=== PATIENT | female | born 1935 | race Caucasian/White ===

== ENCOUNTER 2017-05-13 21:22 | Inpatient (IN) | payer MEDICARE ==
[~2017-05-13] VITALS: Ht 167.6 cm; Wt 53.5 kg
[~2017-05-13 21:22] MED LIST: LOSA100T28 PO; LOSA25TA96 PO; hyDRALAzine tablet PO
[2017-05-13 21:46] LABS: BASOPHILS % (AUTO) 0.3 % (0-1); EOSINOPHILS # (AUTO) 0.2 X10'3 (0-0.9); EOSINOPHILS % (AUTO) 2.4 % (0-6); HEMATOCRIT 42.8 % (35.0-45.0); HEMOGLOBIN 14.8 g/dl (12.0-16.0); LYMPHOCYTES % (AUTO) 14.9 % (21-51); MEAN CORPUSCULAR HEMOGLOBIN 30.9 PG (27.0-31.0); MEAN CORPUSCULAR HGB CONC 34.5 % (33.0-36.5); MEAN CORPUSCULAR VOLUME 89.6 FL (78-98); MEAN PLATELET VOLUME 7.3 FL (7.4-10.4); MONOCYTES # (AUTO) 0.4 X10'3 (0-0.9); MONOCYTES % (AUTO) 5.9 % (2-12); NEUTROPHILS # (AUTO) 4.9 X10'3 (1.8-7.7); NEUTROPHILS % (AUTO) 76.5 % (42-75); PLATELET COUNT 282 X10'3 (140-440); RED BLOOD COUNT 4.78 X10'6 (4.20-5.60); RED CELL DISTRIBUTION WIDTH 13.3 % (11.5-14.5); WHITE BLOOD COUNT 6.4 X10'3 (4.5-11.0)
[2017-05-13 21:58] LABS: PARTIAL THROMBOPLASTIN TIME 28 SECONDS (22-32); PROTHROMBIN TIME 10.6 SECONDS (9.0-12.0)
[2017-05-13 22:05] LABS: ALANINE AMINOTRANSFERASE 30 U/L (12-78); ALBUMIN 3.7 G/DL (3.4-5.0); ALBUMIN/GLOBULIN RATIO 0.9 (1.1-1.5); ALKALINE PHOSPHATASE 55 IU/L (46-116); ASPARTATE AMINO TRANSFERASE 22 U/L (10-37); BILIRUBIN,TOTAL 0.5 MG/DL (0.1-1.0); BLOOD UREA NITROGEN 10 MG/DL (7-18); BUN/CREATININE RATIO 14.3 (6.6-38.0); CALCIUM 8.6 MG/DL (8.5-10.1); CHLORIDE 92 MMOL/L (99-107); GLUCOSE 134 MG/DL (70-104); POTASSIUM 4.3 MMOL/L (3.5-5.1); TOTAL PROTEIN 7.7 G/DL (6.4-8.2); eGFR 80 ML/MIN
[2017-05-13 22:07] LABS: ANION GAP 7 (8-16); SODIUM 124 MMOL/L (135-145)
[2017-05-13] MEDS ORDERED: normal saline 1000ml 1,000 ML IV ONE (22:25)
[2017-05-13] MEDS ORDERED: ondansetron/PF 4mg/2ml inj IV ONE ×2 (22:25→23:05)
[2017-05-13] MEDS ORDERED: ketorolac trometh. 30mg/ml inj. IV ONE (23:05)
[2017-05-14] MEDS ORDERED: metoclopramide 5 mg/ml inj IV ONE (00:20)
[2017-05-14] MEDS ORDERED: HYDROmorphone 1 mg/ml syringe IV ONE (00:20)
[2017-05-14] MEDS ORDERED: morphine 4 MG/ML inj SYRINge IV ONE ×2 (00:35→10:35)
[2017-05-14] MEDS ORDERED: iohexol 300mg/ml 100ml inj. ONE (01:51)
[2017-05-14] MEDS ORDERED: iohexol 300 MG/1 ML 50ml polymer ONE (01:59)
[2017-05-14] MEDS ORDERED: BENZ-38 PO (02:22)
[2017-05-14] MEDS ORDERED: morphine 4 MG/ML inj SYRINge IV PRN (03:15)
[2017-05-14] MEDS ORDERED: ondansetron/PF 4mg/2ml inj IV PRN ×2 (03:15→20:45)
[2017-05-14 03:24] LABS: CLARITY,URINE SLIGHTLY CLOUDY (Clear); COLOR,URINE YELLOW (Yellow); GLUCOSE, URINE NEGATIVE (Neg); KETONES,URINE 15 mg/dl (Neg); LEUKOCYTE ESTERASE ,URINE SMALL (Neg); NITRITES, URINE NEGATIVE (Neg); OCCULT BLOOD,URINE NEGATIVE (Neg); PH,URINE 6.5 (4.8-8.0); PROTEIN,URINE TRACE mg/dl (Neg); UROBILINOGEN,URINE 0.2 E.U/dL (0.2-1.0)
[2017-05-14 03:25] LABS: UA COLLECTION TYPE CLN CATCH MIDSTREAM
[2017-05-14 03:32] LABS: BACTERIA,URINE FEW /HPF (Neg); HYALINE CASTS 0-3 /LPF (NEGATIVE); MUCUS STRANDS FEW /LPF (Neg); RBC,URINE NONE SEEN /HPF (0-2); SQUAMOUS EPITHELIAL CELL,UR FEW /LPF (FEW); WBC CLUMPS,URINE FEW /HPF (NEGATIVE); WBC,URINE 20-30 /HPF (0-4)
[2017-05-14] MEDS: normal saline 1000ml 1,000 ML IV SCH ×2 (03:50→13:13)
[2017-05-14] MEDS: CefTRIAXone/D5W-Rocephin 1gm 50 ML IV SCH ×2 (03:54→20:24)
[2017-05-14] MEDS: lactobacillus rhamnosus 10,000 MMU CELLS/CAPSULE PO SCH ×2 (08:33→20:24)
[2017-05-14 08:36] LABS: BASOPHILS % (AUTO) 0.2 % (0-1); EOSINOPHILS # (AUTO) 0.1 X10'3 (0-0.9); EOSINOPHILS % (AUTO) 0.8 % (0-6); HEMATOCRIT 38.4 % (35.0-45.0); HEMOGLOBIN 13.3 g/dl (12.0-16.0); LYMPHOCYTES # (AUTO) 0.8 X10'3 (1.1-4.8); LYMPHOCYTES % (AUTO) 10.2 % (21-51); MEAN CORPUSCULAR HEMOGLOBIN 31.2 PG (27.0-31.0); MEAN CORPUSCULAR HGB CONC 34.5 % (33.0-36.5); MEAN CORPUSCULAR VOLUME 90.3 FL (78-98); MEAN PLATELET VOLUME 7.4 FL (7.4-10.4); MONOCYTES # (AUTO) 0.5 X10'3 (0-0.9); MONOCYTES % (AUTO) 6.3 % (2-12); NEUTROPHILS # (AUTO) 6.7 X10'3 (1.8-7.7); NEUTROPHILS % (AUTO) 82.5 % (42-75); PLATELET COUNT 248 X10'3 (140-440); RED BLOOD COUNT 4.25 X10'6 (4.20-5.60); RED CELL DISTRIBUTION WIDTH 13.4 % (11.5-14.5); WHITE BLOOD COUNT 8.2 X10'3 (4.5-11.0)
[2017-05-14 08:49] LABS: ALBUMIN 3.2 G/DL (3.4-5.0); ANION GAP 8 (8-16); BLOOD UREA NITROGEN 7 MG/DL (7-18); BUN/CREATININE RATIO 11.9 (6.6-38.0); CALCIUM 7.8 MG/DL (8.5-10.1); CHLORIDE 94 MMOL/L (99-107); CREATININE 0.59 MG/DL (0.40-0.90); GLUCOSE 134 MG/DL (70-104); POTASSIUM 3.9 MMOL/L (3.5-5.1); SODIUM 126 MMOL/L (135-145); TOTAL CARBON DIOXIDE 24.2 MMOL/L (24-32); eGFR > 90 ML/MIN
[2017-05-14] MEDS ORDERED: ondansetron/PF 4mg/2ml inj IV ONE ×2 (10:05→12:25)
[2017-05-14] MEDS ORDERED: MORPHINE 2MG in 2ml NS syringe IV ONE (10:05)
[2017-05-14] MEDS ORDERED: methylPREDNISolone sod succ 125mg/2ml vial IV ONE ×2 (10:05→13:00)
[2017-05-14] MEDS ORDERED: azithromycin/NS 500mg/250ml 250 ML IV ONE (10:05)
[2017-05-14] MEDS ORDERED: benzonatate 100mg capsule PO PRN (10:55)
[2017-05-14] MEDS: ipratropium/albuterol 3ml nebule NEB SCH ×4 (11:00→22:49)
[2017-05-14] MEDS ORDERED: losartan 50mg tablet PO ONE (11:00)
[2017-05-14] MEDS ORDERED: LORazepam 2 mg/ml vial IV ONE ×2 (12:25→12:35)
[2017-05-14] MEDS ORDERED: TOBR5DRO7 (13:00)
[2017-05-14] MEDS: oseltamivir phos 75mg capsule PO SCH (15:38)
[2017-05-14 16:32] VITALS: BP 157/79
[2017-05-14] MEDS: hyDRALAzine 10mg tablet PO SCH (17:00)
[2017-05-14 18:40] VITALS: BP 154/73
[2017-05-14 19:00] VITALS: BP 154/73
[2017-05-15] VITALS: BP 145/84
[2017-05-15] MEDS: hyDRALAzine 10mg tablet PO SCH ×3 (00:16→15:07)
[2017-05-15] MEDS: MORPHINE 2MG in 2ml NS syringe IV PRN ×3 (00:16→11:15)
[2017-05-15] MEDS: normal saline 1000ml 1,000 ML IV SCH ×3 (00:23→19:30)
[2017-05-15] MEDS: ipratropium/albuterol 3ml nebule NEB SCH ×2 (02:57→19:00)
[2017-05-15] MEDS: metoclopramide 5 mg/ml inj IV PRN ×3 (03:02→16:11)
[2017-05-15] MEDS ORDERED: ketorolac trometh. 30mg/ml inj. IV ONE (03:25)
[2017-05-15 04:00] VITALS: BP 139/69
[2017-05-15 04:33] LABS: INR 1.1 INR; PROTHROMBIN TIME 11.3 SECONDS (9.0-12.0)
[2017-05-15 04:37] LABS: BASOPHILS % (AUTO) 0 % (0-1); EOSINOPHILS # (AUTO) 0.2 X10'3 (0-0.9); EOSINOPHILS % (AUTO) 1.5 % (0-6); HEMATOCRIT 38.4 % (35.0-45.0); HEMOGLOBIN 13.4 g/dl (12.0-16.0); LYMPHOCYTES # (AUTO) 1.1 X10'3 (1.1-4.8); LYMPHOCYTES % (AUTO) 9.3 % (21-51); MEAN CORPUSCULAR HEMOGLOBIN 31.1 PG (27.0-31.0); MEAN CORPUSCULAR HGB CONC 34.8 % (33.0-36.5); MEAN CORPUSCULAR VOLUME 89.3 FL (78-98); MEAN PLATELET VOLUME 7.7 FL (7.4-10.4); MONOCYTES % (AUTO) 8.9 % (2-12); NEUTROPHILS # (AUTO) 9.1 X10'3 (1.8-7.7); NEUTROPHILS % (AUTO) 80.3 % (42-75); PLATELET COUNT 284 X10'3 (140-440); RED BLOOD COUNT 4.29 X10'6 (4.20-5.60); RED CELL DISTRIBUTION WIDTH 13.4 % (11.5-14.5); WHITE BLOOD COUNT 11.3 X10'3 (4.5-11.0)
[2017-05-15 05:17] LABS: ALBUMIN 3.2 G/DL (3.4-5.0); ANION GAP 11 (8-16); BLOOD UREA NITROGEN 8 MG/DL (7-18); CHLORIDE 100 MMOL/L (99-107); GLUCOSE 133 MG/DL (70-104); LIPASE 245 U/L (73-393); MAGNESIUM 1.6 MG/DL (1.5-2.4); POTASSIUM 3.7 MMOL/L (3.5-5.1); SODIUM 135 MMOL/L (135-145); TOTAL CARBON DIOXIDE 23.9 MMOL/L (24-32); eGFR 69 ML/MIN
[2017-05-15 08:00] VITALS: BP 142/74
[2017-05-15] MEDS: lactobacillus rhamnosus 10,000 MMU CELLS/CAPSULE PO SCH ×2 (08:00→20:39)
[2017-05-15] MEDS: losartan 50mg tablet PO SCH (08:00)
[2017-05-15] MEDS: oseltamivir phos 75mg capsule PO SCH (08:00)
[2017-05-15 11:00] VITALS: BP 148/80
[2017-05-15] MEDS: ondansetron/PF 4mg/2ml inj IV PRN ×2 (15:07→19:27)
[2017-05-15] MEDS: morphine 4 MG/ML inj SYRINge IV PRN ×2 (16:09→20:39)
[2017-05-15 18:50] VITALS: BP 152/86
[2017-05-15] MEDS: CefTRIAXone/D5W-Rocephin 1gm 50 ML IV SCH (20:38)
[2017-05-15] MEDS ORDERED: ipratropium/albuterol 3ml nebule NEB PRN (22:45)
[2017-05-16] VITALS: BP 148/84
[2017-05-16] MEDS: hyDRALAzine 10mg tablet PO SCH ×5 (00:03→23:46)
[2017-05-16] MEDS: metoclopramide 5 mg/ml inj IV PRN (00:03)
[2017-05-16] MEDS: morphine 4 MG/ML inj SYRINge IV PRN ×5 (00:03→23:05)
[2017-05-16] MEDS: ondansetron/PF 4mg/2ml inj IV PRN ×3 (02:18→10:49)
[2017-05-16 02:27] LABS: CLARITY,URINE Clear (Clear); COLOR,URINE Yellow (Yellow); GLUCOSE, URINE Negative (Neg); KETONES,URINE Negative (Neg); LEUKOCYTE ESTERASE ,URINE Small (Neg); NITRITES, URINE Negative (Neg); OCCULT BLOOD,URINE Negative (Neg); PH,URINE 6.5 (4.8-8.0); PROTEIN,URINE Negative (Neg); UROBILINOGEN,URINE 0.2 E.U/dL (0.2-1.0)
[2017-05-16 02:39] LABS: UA COLLECTION TYPE VOIDED
[2017-05-16] MEDS: HYDROcodone/acetaminophen 5mg/325mg tablet PO PRN (02:39)
[2017-05-16 02:40] LABS: BACTERIA,URINE NONE SEEN /HPF (Neg); RBC,URINE NONE SEEN /HPF (0-2); SQUAMOUS EPITHELIAL CELL,UR FEW /LPF (FEW); WBC,URINE 0-4 /HPF (0-4)
[2017-05-16] MEDS: normal saline 1000ml 1,000 ML IV SCH ×2 (04:44→12:45)
[2017-05-16 06:05] LABS: BASOPHILS % (AUTO) 0.1 % (0-1); EOSINOPHILS # (AUTO) 0.2 X10'3 (0-0.9); EOSINOPHILS % (AUTO) 1.8 % (0-6); HEMATOCRIT 38.4 % (35.0-45.0); HEMOGLOBIN 13.2 g/dl (12.0-16.0); LYMPHOCYTES # (AUTO) 1.1 X10'3 (1.1-4.8); LYMPHOCYTES % (AUTO) 8.1 % (21-51); MEAN CORPUSCULAR HEMOGLOBIN 31.1 PG (27.0-31.0); MEAN CORPUSCULAR HGB CONC 34.5 % (33.0-36.5); MEAN CORPUSCULAR VOLUME 90.3 FL (78-98); MEAN PLATELET VOLUME 7.4 FL (7.4-10.4); MONOCYTES # (AUTO) 1.2 X10'3 (0-0.9); MONOCYTES % (AUTO) 8.6 % (2-12); NEUTROPHILS # (AUTO) 11.3 X10'3 (1.8-7.7); NEUTROPHILS % (AUTO) 81.4 % (42-75); PLATELET COUNT 281 X10'3 (140-440); RED BLOOD COUNT 4.25 X10'6 (4.20-5.60); RED CELL DISTRIBUTION WIDTH 13.6 % (11.5-14.5); WHITE BLOOD COUNT 13.9 X10'3 (4.5-11.0)
[2017-05-16 06:16] LABS: ALBUMIN 2.9 G/DL (3.4-5.0); ANION GAP 6 (8-16); BLOOD UREA NITROGEN 6 MG/DL (7-18); BUN/CREATININE RATIO 9.2 (6.6-38.0); CALCIUM 7.8 MG/DL (8.5-10.1); CHLORIDE 98 MMOL/L (99-107); CREATININE 0.65 MG/DL (0.40-0.90); GLUCOSE 117 MG/DL (70-104); POTASSIUM 3.2 MMOL/L (3.5-5.1); SODIUM 131 MMOL/L (135-145); TOTAL CARBON DIOXIDE 27.3 MMOL/L (24-32); eGFR 87 ML/MIN
[2017-05-16] MEDS: azithromycin/NS 500mg/250ml 250 ML IV SCH (07:09)
[2017-05-16] MEDS: lactobacillus rhamnosus 10,000 MMU CELLS/CAPSULE PO SCH ×2 (07:09→21:11)
[2017-05-16] MEDS: losartan 50mg tablet PO SCH (07:09)
[2017-05-16] MEDS: oseltamivir phos 75mg capsule PO SCH (07:09)
[2017-05-16 08:10] VITALS: BP 161/86
[2017-05-16] MEDS ORDERED: magnesium Cl slow-release 64mg tablet PO PRN (10:45)
[2017-05-16] MEDS ORDERED: magnesium 2GM in 50ml NS 50 ML IV PRN (10:45)
[2017-05-16] MEDS ORDERED: potassium Cl 20 mEq SR tablet PO PRN ×2 (10:45)
[2017-05-16] MEDS ORDERED: magnesium 4gm in 100ml NS 100 ML IV PRN (10:45)
[2017-05-16] MEDS ORDERED: potassium Cl 40MEQ/NS 500ml 500 ML IV PRN ×2 (10:45)
[2017-05-16 11:05] VITALS: BP 162/86
[2017-05-16] MEDS ORDERED: MORPHINE 2MG in 2ml NS syringe IV ONE (13:00)
[2017-05-16] MEDS ORDERED: proMETHazine 12.5mg rectal suppository RC PRN (13:05)
[2017-05-16] MEDS ORDERED: acetaminophen 325mg tablet PO PRN (17:20)
[2017-05-16 18:40] VITALS: BP 152/89
[2017-05-16] MEDS: CefTRIAXone/D5W-Rocephin 1gm 50 ML IV SCH (21:11)
[2017-05-16] MEDS: LORazepam 1 MG tablet PO PRN (23:49)
[2017-05-17 05:38] LABS: BASOPHILS # (AUTO) 0.1 X10'3 (0-0.2); BASOPHILS % (AUTO) 0.8 % (0-1); EOSINOPHILS # (AUTO) 0.1 X10'3 (0-0.9); EOSINOPHILS % (AUTO) 1.4 % (0-6); HEMATOCRIT 36.4 % (35.0-45.0); HEMOGLOBIN 12.5 g/dl (12.0-16.0); LYMPHOCYTES # (AUTO) 1.2 X10'3 (1.1-4.8); LYMPHOCYTES % (AUTO) 17.5 % (21-51); MEAN CORPUSCULAR HEMOGLOBIN 31.1 PG (27.0-31.0); MEAN CORPUSCULAR HGB CONC 34.3 % (33.0-36.5); MEAN CORPUSCULAR VOLUME 90.5 FL (78-98); MONOCYTES # (AUTO) 0.9 X10'3 (0-0.9); MONOCYTES % (AUTO) 13.1 % (2-12); NEUTROPHILS # (AUTO) 4.4 X10'3 (1.8-7.7); NEUTROPHILS % (AUTO) 67.2 % (42-75); PLATELET COUNT 248 X10'3 (140-440); RED BLOOD COUNT 4.02 X10'6 (4.20-5.60); RED CELL DISTRIBUTION WIDTH 13.6 % (11.5-14.5); WHITE BLOOD COUNT 6.6 X10'3 (4.5-11.0)
[2017-05-17 05:56] LABS: ALBUMIN 2.5 G/DL (3.4-5.0); ANION GAP 5 (8-16); BLOOD UREA NITROGEN 5 MG/DL (7-18); BUN/CREATININE RATIO 9.8 (6.6-38.0); CALCIUM 7.8 MG/DL (8.5-10.1); CHLORIDE 102 MMOL/L (99-107); CREATININE 0.51 MG/DL (0.40-0.90); GLUCOSE 93 MG/DL (70-104); MAGNESIUM 1.9 MG/DL (1.5-2.4); SODIUM 136 MMOL/L (135-145); TOTAL CARBON DIOXIDE 28.6 MMOL/L (24-32); eGFR > 90 ML/MIN
[2017-05-17 06:29] LABS: POTASSIUM 2.9 MMOL/L (3.5-5.1)
[2017-05-17] MEDS: lactobacillus rhamnosus 10,000 MMU CELLS/CAPSULE PO SCH ×2 (07:01→20:14)
[2017-05-17] MEDS: oseltamivir phos 75mg capsule PO SCH (07:01)
[2017-05-17] MEDS: losartan 50mg tablet PO SCH (07:01)
[2017-05-17] MEDS: hyDRALAzine 10mg tablet PO SCH ×2 (07:01→17:23)
[2017-05-17] MEDS: normal saline 1000ml 1,000 ML IV SCH (07:07)
[2017-05-17] MEDS: azithromycin/NS 500mg/250ml 250 ML IV SCH (07:07)
[2017-05-17 07:12] VITALS: BP 161/94
[2017-05-17] MEDS: LIDOcaine 1% 30ml vial 5 ML in potassium Cl 40MEQ/NS 500ml 500 ML IV PRN ×2 (09:12→14:21)
[2017-05-17] MEDS: morphine 4 MG/ML inj SYRINge IV PRN ×2 (11:00→17:25)
[2017-05-17] MEDS ORDERED: bisacodyl 10mg suppository rectal RC PRN (11:05)
[2017-05-17] MEDS ORDERED: magnesium hydroxide 30ml (MOM) UD suspension PO ONE (11:05)
[2017-05-17] MEDS: ondansetron/PF 4mg/2ml inj IV PRN ×2 (11:25→17:29)
[2017-05-17 11:35] VITALS: BP 143/73
[2017-05-17 13:28] LABS: GLUCOSE,CSF 69 MG/DL (40-75); TOTAL PROTEIN,CSF 41 MG/DL (30-60)
[2017-05-17 14:19] LABS: APPEARANCE,CSF CLEAR; CSF SUPERNATANT COLOR COLORLESS; CSF VOLUME 6 ML; TUBE# COUNTED 3
[2017-05-17 14:20] LABS: CSF RBC 0 /CU MM (0); CSF WBC CT 0 /CU MM (0-5)
[2017-05-17] MEDS ORDERED: potassium Cl 40MEQ/NS 500ml 500 ML IV PRN ×2 (16:15)
[2017-05-17] MEDS ORDERED: potassium Cl 20 mEq SR tablet PO PRN ×2 (16:15)
[2017-05-17] MEDS ORDERED: magnesium Cl slow-release 64mg tablet PO PRN (16:15)
[2017-05-17] MEDS ORDERED: magnesium 2GM in 50ml NS 50 ML IV PRN (16:15)
[2017-05-17] MEDS ORDERED: magnesium 4gm in 100ml NS 100 ML IV PRN (16:15)
[2017-05-17 20:00] VITALS: BP 163/98
[2017-05-17] MEDS: LORazepam 1 MG tablet PO PRN (20:14)
[2017-05-17] MEDS: CefTRIAXone/D5W-Rocephin 1gm 50 ML IV SCH (20:15)
[2017-05-17] MEDS ORDERED: diphenhydrAMINE 25mg capsule PO PRN (21:10)
[2017-05-17 23:30] VITALS: BP 128/74
[2017-05-18] MEDS: morphine 4 MG/ML inj SYRINge IV PRN ×3 (05:53→19:03)
[2017-05-18] MEDS: ondansetron/PF 4mg/2ml inj IV PRN ×3 (05:53→16:36)
[2017-05-18 06:28] LABS: BASOPHILS # (AUTO) 0.1 X10'3 (0-0.2); BASOPHILS % (AUTO) 1.2 % (0-1); EOSINOPHILS # (AUTO) 0.2 X10'3 (0-0.9); EOSINOPHILS % (AUTO) 3.7 % (0-6); HEMATOCRIT 40.1 % (35.0-45.0); LYMPHOCYTES % (AUTO) 14.6 % (21-51); MEAN CORPUSCULAR HEMOGLOBIN 31.4 PG (27.0-31.0); MEAN CORPUSCULAR HGB CONC 34.9 % (33.0-36.5); MEAN PLATELET VOLUME 7.9 FL (7.4-10.4); MONOCYTES # (AUTO) 0.7 X10'3 (0-0.9); NEUTROPHILS # (AUTO) 4.5 X10'3 (1.8-7.7); NEUTROPHILS % (AUTO) 69.5 % (42-75); PLATELET COUNT 246 X10'3 (140-440); RED BLOOD COUNT 4.45 X10'6 (4.20-5.60); RED CELL DISTRIBUTION WIDTH 13.2 % (11.5-14.5); WHITE BLOOD COUNT 6.5 X10'3 (4.5-11.0)
[2017-05-18 06:31] LABS: ALBUMIN 2.6 G/DL (3.4-5.0); ANION GAP 6 (8-16); BLOOD UREA NITROGEN 6 MG/DL (7-18); BUN/CREATININE RATIO 12.5 (6.6-38.0); CALCIUM 8.3 MG/DL (8.5-10.1); CHLORIDE 99 MMOL/L (99-107); CREATININE 0.48 MG/DL (0.40-0.90); GLUCOSE 92 MG/DL (70-104); MAGNESIUM 2.1 MG/DL (1.5-2.4); SODIUM 133 MMOL/L (135-145); TOTAL CARBON DIOXIDE 28.2 MMOL/L (24-32); eGFR > 90 ML/MIN
[2017-05-18 06:35] LABS: POTASSIUM 3.8 MMOL/L (3.5-5.1)
[2017-05-18 07:00] VITALS: BP 145/94
[2017-05-18] MEDS: azithromycin 250mg tablet PO SCH (09:03)
[2017-05-18] MEDS: oseltamivir phos 75mg capsule PO SCH ×2 (09:04→20:19)
[2017-05-18] MEDS: hyDRALAzine 10mg tablet PO SCH ×4 (09:04→23:35)
[2017-05-18] MEDS: lactobacillus rhamnosus 10,000 MMU CELLS/CAPSULE PO SCH ×2 (09:04→20:19)
[2017-05-18] MEDS: losartan 50mg tablet PO SCH (09:05)
[2017-05-18 11:00] VITALS: BP 145/94
[2017-05-18] MEDS: HYDROcodone/acetaminophen 5mg/325mg tablet PO PRN (16:36)
[2017-05-18 19:00] VITALS: BP 136/77
[2017-05-18] MEDS: CefTRIAXone/D5W-Rocephin 1gm 50 ML IV SCH (20:45)
[2017-05-18] MEDS: LORazepam 1 MG tablet PO PRN (20:46)
[2017-05-18] MEDS: normal saline 1000ml 1,000 ML IV SCH (23:50)
[2017-05-19] VITALS: BP 146/76
[2017-05-19] MEDS: HYDROcodone/acetaminophen 5mg/325mg tablet PO PRN ×2 (05:18→13:57)
[2017-05-19 05:21] LABS: BASOPHILS % (AUTO) 0.6 % (0-1); EOSINOPHILS # (AUTO) 0.4 X10'3 (0-0.9); EOSINOPHILS % (AUTO) 5.4 % (0-6); HEMATOCRIT 41.1 % (35.0-45.0); HEMOGLOBIN 14.2 g/dl (12.0-16.0); LYMPHOCYTES # (AUTO) 1.1 X10'3 (1.1-4.8); LYMPHOCYTES % (AUTO) 15.1 % (21-51); MEAN CORPUSCULAR HEMOGLOBIN 31.3 PG (27.0-31.0); MEAN CORPUSCULAR HGB CONC 34.5 % (33.0-36.5); MEAN CORPUSCULAR VOLUME 90.6 FL (78-98); MEAN PLATELET VOLUME 7.4 FL (7.4-10.4); MONOCYTES # (AUTO) 0.7 X10'3 (0-0.9); MONOCYTES % (AUTO) 9.1 % (2-12); NEUTROPHILS # (AUTO) 5.2 X10'3 (1.8-7.7); NEUTROPHILS % (AUTO) 69.8 % (42-75); PLATELET COUNT 303 X10'3 (140-440); RED BLOOD COUNT 4.53 X10'6 (4.20-5.60); RED CELL DISTRIBUTION WIDTH 13.8 % (11.5-14.5); WHITE BLOOD COUNT 7.4 X10'3 (4.5-11.0)
[2017-05-19 05:43] LABS: ALBUMIN 2.6 G/DL (3.4-5.0); ANION GAP 4 (8-16); BLOOD UREA NITROGEN 7 MG/DL (7-18); BUN/CREATININE RATIO 11.3 (6.6-38.0); CALCIUM 8.4 MG/DL (8.5-10.1); CHLORIDE 100 MMOL/L (99-107); CREATININE 0.62 MG/DL (0.40-0.90); GLUCOSE 97 MG/DL (70-104); MAGNESIUM 2.1 MG/DL (1.5-2.4); POTASSIUM 3.7 MMOL/L (3.5-5.1); SODIUM 136 MMOL/L (135-145); TOTAL CARBON DIOXIDE 31.8 MMOL/L (24-32); eGFR > 90 ML/MIN
[2017-05-19 08:04] VITALS: BP 184/91
[2017-05-19] MEDS: azithromycin 250mg tablet PO SCH (08:18)
[2017-05-19] MEDS: losartan 50mg tablet PO SCH (08:18)
[2017-05-19] MEDS: lactobacillus rhamnosus 10,000 MMU CELLS/CAPSULE PO SCH (08:19)
[2017-05-19] MEDS: hyDRALAzine 10mg tablet PO SCH (08:19)
[2017-05-19] MEDS: oseltamivir phos 75mg capsule PO SCH (08:19)
[2017-05-19 11:03] VITALS: BP 140/68
[2017-05-19] MEDS: ondansetron/PF 4mg/2ml inj IV PRN (14:07)
[2017-05-19] MEDS ORDERED: HYDR-569 PO (14:48)
[2017-05-19] MEDS ORDERED: PHE25R PR (14:48)
[2017-05-21 11:20] LABS: CSF WEST NILE VIRUS, IGG Negative (Negative); CSF WEST NILE VIRUS, IGM Negative (Negative)
[2017-05-22 09:18] LABS: LYME IGG P23 AB Absent (.); LYME IGG P28 AB Absent (.); LYME IGG P30 AB Absent (.); LYME IGG P41 AB Absent (.); LYME IGG P45 AB Absent (.); LYME IGG P58 AB Absent (.); LYME IGG P66 AB Absent (.); LYME IGG P93 AB Absent (.); LYME IGG WB INTERP Negative (.); LYME IGM P23 AB Absent (.); LYME IGM P39 AB Absent (.); LYME IGM P41 AB Absent (.); LYME IGM WB INTERP Negative (.)
== END 2017-05-19 16:00 | disposition home or self-care (01) | DRG 194 ==
LOC: ER 21:22 → ED HOLD 05-14 03:13 → MED 3N 05-14 15:13
PROVIDERS: ADMIT Family Medicine; ATTEND Internal Medicine
PROC: BW211ZZ Computerized Tomography (CT Scan) of Abdomen and Pelvis using Low Osmolar Contrast (ICD-10-PCS; principal; 2017-05-14)
PROC: 009U3ZX Drainage of Spinal Canal, Percutaneous Approach, Diagnostic (ICD-10-PCS; 2017-05-17)
DX: J10.1 Influenza due to other identified influenza virus with other respiratory manifestations (principal); E87.1 Hypo-osmolality and hyponatremia; K86.89 Other specified diseases of pancreas; R10.9 Unspecified abdominal pain; I10 Essential (primary) hypertension; G43.909 Migraine, unspecified, not intractable, without status migrainosus; M53.3 Sacrococcygeal disorders, not elsewhere classified; G89.29 Other chronic pain; Z90.49 Acquired absence of other specified parts of digestive tract; Z90.710 Acquired absence of both cervix and uterus; Z98.1 Arthrodesis status; Z88.6 Allergy status to analgesic agent; Z88.8 Allergy status to other drugs, medicaments and biological substances; Z82.62 Family history of osteoporosis; Z82.49 Family history of ischemic heart disease and other diseases of the circulatory system; Z80.3 Family history of malignant neoplasm of breast
CPT/HCPCS: 36415; 62270; 70450; 70551; 71045; 72141; 74177; 74181; 80048; 80053; 81001; 82945; 83605; 83690; 83735; 83986; 84132; 84157; 84484; 85025; 85610; 85730; 86617; 86788; 86789; 87015; 87040; 87070; 87088; 87102; 87502; 87503; 89051; 93005; 94640; 94760; 96361; 96374; 96375; 96376; 99285; J0456; J0696; J1885; J2060; J2270; J2274; J2405; J2765; J2930; J3480; J3490; J7030; Q0163; Q9967